=== PATIENT | female | born 1965 | race Two or more races ===

== ENCOUNTER 2018-04-21 18:22 | Outpatient (CLI) | payer OTHER | END 2018-04-21 19:41 | disposition home or self-care (01) | LOC: RAD 18:22 | DX: M25.561 Pain in right knee (principal); M17.11 Unilateral primary osteoarthritis, right knee ==

== ENCOUNTER 2018-09-15 14:36 | Outpatient (CLI) | payer OTHER | END 2018-09-15 14:43 | disposition home or self-care (01) | LOC: RAD 501 14:36 | DX: M79.651 Pain in right thigh (principal); M79.652 Pain in left thigh; M25.561 Pain in right knee; M25.562 Pain in left knee ==